=== PATIENT | female | born 2000 | race Asian ===

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

== ENCOUNTER → 2022-09-20 | Outpatient (REF) | payer OTHER | LOC: ZCOL.LAB 15:39 | DX: L05.01 Pilonidal cyst with abscess (principal) ==

== ENCOUNTER → 2022-10-22 | Outpatient (REF) | payer OTHER, MEDICAID | LOC: ZCOL.LAB 15:46 | DX: L05.01 Pilonidal cyst with abscess (principal) ==